=== PATIENT | female | born 1970 | race American Indian/Alaskan Native ===

== ENCOUNTER 2016-12-11 08:26 | Outpatient (CLI) | payer OTHER ==
--- NOTE | 2016-12-11 10:12 | Mammography Report ---
RIGHT DIGITAL DIAGNOSTIC MAMMOGRAM : 12/11/16 08:26:00 CLINICAL: Recalled for asymmetries. COMPARISON:10/23/16 screening FINDINGS: ML and spot compression MLO and CC views were performed and demonstrate no persistent suspicious asymmetries. IMPRESSION: Negative Mammogram. BI-RADS CATEGORY: 1 -- Negative RECOMMENDATION: Routine mammographic screening in one year. ACR BI-RADS MAMMOGRAPHIC CODES: 0 = Needs additional imaging evaluation; 1 = Negative; 2 = Benign; 3 = Probably benign; 4 = Suspicious; 5 = Malignant; 6 = Known biopsy-proven malignancy COMMENT: 1. Dense breast tissue, i.e., adenosis, fibrocystic changes, etc., may obscure an underlying neoplasm. 2. Approximately 10% of cancers are not detected with mammography. 3. A negative mammography report should not delay biopsy if a clinically suspicious mass is present. COMMENT: Patient follow-up letters are generated via our judo application.
== END 2016-12-11 08:27 | disposition home or self-care (01) ==
LOC: SPVWC 08:26
PROVIDERS: ATTEND Internal Medicine
DX: N60.21 Fibroadenosis of right breast (principal)
CPT/HCPCS: G0206-RT